=== PATIENT | female | born 1945 | race Caucasian/White ===

== ENCOUNTER 2018-01-25 07:32 | Emergency (ER) | payer OTHER, SELFPAY ==
[2018-01-25] VITALS (8 sets, daily range): BP systolic 145–178; BP diastolic 44–96; PULSE 64–87; RESP 15–18; TEMP 36.5–37.1; O2SAT 82–98
--- NOTE | 2018-01-25 07:38 | W.ED.GENAD ---
Discharge Plan Disposition Patient Disposition: HOME Condition: Stable Discharge Details Chief Complaint: Abd Prob Clinical Impression: Abdominal pain, Sacral mass Primary Care Provider: Delores,Local ED Provider: Marni Hua Home Meds and New Rx's Prescriptions: No Action No Known Home Meds RF: 0 Discharge Instructions Instructions: Abdominal Pain (ED) Additional Instructions: Please return immediately to the emergency department if you develop any new or worsening symptoms or if you become otherwise concerned. It is extremely important that you mail the provided CT scan images to your doctor in [place] as soon as possible. It is also extremely important that you call your doctor to schedule a follow-up appointment for this visit . Discharge Data Discharge Date/Time-TO BE ENTERED AT DEPARTURE: 01/25/18 13:33 Medical Decision Making Courtney Cruz is a 72 y/o woman with history of rectal cancer now in complete remission status post abdominal surgery presenting to the emergency department with abdominal pain and vomiting 2 days ago, now with no further vomiting but with continued mild right lower quadrant pain. On exam patient is very well and nontoxic appearing. Benign cardiopulmonary exam. Right lower quadrant and suprapubic tenderness without peritoneal signs on abdominal exam. Exam/history not consistent with acute aortic process, sepsis, ACS. Concern for obstruction versus ileus versus appendicitis versus UTI versus other. Plan for screening labs, IV fluid hydration, CT abdomen pelvis. Will monitor and reassess. Patient declines pain medication at this time. Labs nondiagnostic. CT shows sacral mass concerning for recurrence of neoplastic process. I relayed this information to the patient, who reported that she had a CT scan 1 month ago, and has been told that she has significant scarring in the area that does resemble a new mass. With this information, likely that finding on CT is not new, however, I stressed to the patient that record should be sent to her physician in [place] for comparison as soon as possible. I was informed by medical records that we are not able to mail imaging studies internationally. Patient was provided with a disc to send to her physician today for review and comparison. Patient reporting no symptoms at this time and feels ready for discharge. Lengthy discussion with patient regarding return to emergency department precautions and importance of outpatient follow-up. She is amenable to the plan. Medical Records Medical records reviewed: Yes I reviewed the patient's medical records. Imaging Data Radiologic Study: Attestation: I personally reviewed and interpreted this imaging study as follows: Radiologist's impression: ABDOMINAL AND PELVIC CT: CT examination of the abdomen and pelvis was performed with a bolus infusion of 100 cc of Omnipaque 350. Images obtained through the lung bases show small areas of bibasilar atelectasis or consolidation anteriorly. The liver and spleen appear normal. Pancreas appears intact. Gallbladder is distended, which is a nonspecific finding. No gross intra/extra-hepatic biliary duct dilatation is seen. Abdominal aorta is of normal diameter and no major vascular abnormality is seen. No significant abdominal wall hernia seen. Adrenals and kidneys appear normal; no evidence of hydronephrosis or nephrolithiasis. The patient reportedly has a history of resected and reanastomosed rectal carcinoma. There is marked presacral soft tissue mass-like radiodensity measuring up to about 2 cm in thickness and the rectal wall is markedly and irregularly thickened. No gross evidence of obstruction. Sigmoid and more proximal colon appear intact. Appendix is normal. No small bowel obstruction seen. No gross retroperitoneal adenopathy. No gross mesenteric adenopathy. No significant pelvic adenopathy seen. CHINESE TEACHER structures appear intact as visualized. CONCLUSION: In the absence of previous examinations for correlation, the findings are highly suspicious for a recurrent rectal carcinoma with a presacral mass and marked rectal wall thickening. Please correlate clinically and comparison with previous studies is recommended. Lab Data Lab results reviewed: Yes I reviewed the patient's lab results. HPI General Mode of arrival: ambulatory. Date/Time Provider Initiated Documentation: 01/25/18 07:38. Limitations to Documentation: no limitations. Information obtained by: patient, RN notes reviewed and old records reviewed. HPI Narrative: Courtney Cruz is a 72 y/o woman with a history of rectal cancer presenting to the emergency department abdominal pain. Patient reports that she was diagnosed with rectal cancer a few years ago. She had surgery and radiation treatment with colostomy, and her colostomy reversed 1 year ago. She is currently in remission and has not received any cancer treatment in the past year. She is otherwise healthy without medical problems, takes no medications. Patient reports that she is visiting from [place] for the month. 2 days ago patient developed significant abdominal pain and cramping. She had multiple episodes of vomiting after that, which were nonbilious and nonbloody. Patient reports that her pain did subside somewhat. She was concerned about an obstruction, having had abdominal surgery in the past, and has not eaten anything right since that time 2 nights ago. Did drink a small amount of water yesterday without vomiting. Patient reports that she had a bowel movement this morning which was normal. She is continuing to have mild right-sided lower quadrant pain. No history of obstruction in the past. No other recent illnesses. Related Data Home Medications Medication Instructions Recorded Confirmed Unknown [No Known Home Meds] 01/25/18 01/25/18 Allergies Allergy/AdvReac Type Severity Reaction Status Date / Time No Known Allergies Allergy Unverified 01/25/18 07:44 Review of Systems Review of Systems Constitutional: denies fevers Eyes: denies eye pain ENT: denies facial pain, dental pain, sore throat Cardiovascular: denies chest pain, edema Respiratory: denies SOB, cough GI: reports abdominal pain, vomiting, denies constipation, diarrhea : denies flank pain MSK: denies back pain, neck pain, arthralgias, myalgias Skin: denies rash Neuro: denies headaches, lightheadedness, weakness [facility] Social History Smoking/Tobacco Use Status: Former Tobacco Use Exam Narrative Exam Narrative: Constitutional: well and [id number], pleasant, conversing normally HENT: head atraumatic, normocephalic normal inspection, mucous membranes moist Eyes: conjunctiva normal, sclera normal, pupils 3mm b/l Neck: no stridor, normal ROM, trachea midline Chest: normal inspection Resp: normal work of breathing, LCTAB Cardio: normal rate, normal rhythm, no murmur appreciated GI: abdomen soft, non-distended, mild tenderness palpation right lower quadrant and right suprapubic area, no focal McBurney's point tenderness, negative Gil sign, no rebound/ Back: normal inspection, no rash Skin: warm, dry, normal color, no rash Neuro: alert, not altered, grossly non-focal, normal tone Ext: no edema Psych: normal mood, normal affect, normal behavior
--- NOTE | 2018-01-25 08:29 | DI.CT_ITS ---
SYMPTOMS/DIAGNOSIS: ABDOMINAL PAIN ABDOMINAL AND PELVIC CT: CT examination of the abdomen and pelvis was performed with a bolus infusion of 100 cc of Omnipaque 350. Images obtained through the lung bases show small areas of bibasilar atelectasis or consolidation anteriorly. The liver and spleen appear normal. Pancreas appears intact. Gallbladder is distended, which is a nonspecific finding. No gross intra/extra-hepatic biliary duct dilatation is seen. Abdominal aorta is of normal diameter and no major vascular abnormality is seen. No significant abdominal wall hernia seen. Adrenals and kidneys appear normal; no evidence of hydronephrosis or nephrolithiasis. The patient reportedly has a history of resected and reanastomosed rectal carcinoma. There is marked presacral soft tissue mass-like radiodensity measuring up to about 2 cm in thickness and the rectal wall is markedly and irregularly thickened. No gross evidence of obstruction. Sigmoid and more proximal colon appear intact. Appendix is normal. No small bowel obstruction seen. No gross retroperitoneal adenopathy. No gross mesenteric adenopathy. No significant pelvic adenopathy seen. EMERGENCY MEDICINE MEDICAL DIRECTOR structures appear intact as visualized. CONCLUSION: In the absence of previous examinations for correlation, the findings are highly suspicious for a recurrent rectal carcinoma with a presacral mass and marked rectal wall thickening. Please correlate clinically and comparison with previous studies is recommended.
--- NOTE | 2018-01-25 08:33 | ED.GENADUL_ITS ---
Discharge Plan Disposition Patient Disposition: HOME Condition: Stable Discharge Details Chief Complaint: Abd Prob Clinical Impression: Abdominal pain, Sacral mass Primary Care Provider: Delores,Local ED Provider: Marni Hua Home Meds and New Rx's Prescriptions: No Action No Known Home Meds RF: 0 Discharge Instructions Instructions: Abdominal Pain (ED) Additional Instructions: Please return immediately to the emergency department if you develop any new or worsening symptoms or if you become otherwise concerned. It is extremely important that you mail the provided CT scan images to your doctor in [place] as soon as possible. It is also extremely important that you call your doctor to schedule a follow-up appointment for this visit . Discharge Data Discharge Date/Time-TO BE ENTERED AT DEPARTURE: 01/25/18 13:33 Medical Decision Making Courtney Cruz is a 72 y/o woman with history of rectal cancer now in complete remission status post abdominal surgery presenting to the emergency department with abdominal pain and vomiting 2 days ago, now with no further vomiting but with continued mild right lower quadrant pain. On exam patient is very well and nontoxic appearing. Benign cardiopulmonary exam. Right lower quadrant and suprapubic tenderness without peritoneal signs on abdominal exam. Exam/history not consistent with acute aortic process, sepsis, ACS. Concern for obstruction versus ileus versus appendicitis versus UTI versus other. Plan for screening labs, IV fluid hydration, CT abdomen pelvis. Will monitor and reassess. Patient declines pain medication at this time. Labs nondiagnostic. CT shows sacral mass concerning for recurrence of neoplastic process. I relayed this information to the patient, who reported that she had a CT scan 1 month ago, and has been told that she has significant scarring in the area that does resemble a new mass. With this information, likely that finding on CT is not new, however, I stressed to the patient that record should be sent to her physician in [place] for comparison as soon as possible. I was informed by medical records that we are not able to mail imaging studies internationally. Patient was provided with a disc to send to her physician today for review and comparison. Patient reporting no symptoms at this time and feels ready for discharge. Lengthy discussion with patient regarding return to emergency department precautions and importance of outpatient follow-up. She is amenable to the plan. Medical Records Medical records reviewed: Yes I reviewed the patient's medical records. Imaging Data Radiologic Study: Attestation: I personally reviewed and interpreted this imaging study as follows: Radiologist's impression: ABDOMINAL AND PELVIC CT: CT examination of the abdomen and pelvis was performed with a bolus infusion of 100 cc of Omnipaque 350. Images obtained through the lung bases show small areas of bibasilar atelectasis or consolidation anteriorly. The liver and spleen appear normal. Pancreas appears intact. Gallbladder is distended, which is a nonspecific finding. No gross intra/extra-hepatic biliary duct dilatation is seen. Abdominal aorta is of normal diameter and no major vascular abnormality is seen. No significant abdominal wall hernia seen. Adrenals and kidneys appear normal; no evidence of hydronephrosis or nephrolithiasis. The patient reportedly has a history of resected and reanastomosed rectal carcinoma. There is marked presacral soft tissue mass-like radiodensity measuring up to about 2 cm in thickness and the rectal wall is markedly and irregularly thickened. No gross evidence of obstruction. Sigmoid and more proximal colon appear intact. Appendix is normal. No small bowel obstruction seen. No gross retroperitoneal adenopathy. No gross mesenteric adenopathy. No significant pelvic adenopathy seen. CHILD SUPPORT CASE OFFICER structures appear intact as visualized. CONCLUSION: In the absence of previous examinations for correlation, the findings are highly suspicious for a recurrent rectal carcinoma with a presacral mass and marked rectal wall thickening. Please correlate clinically and comparison with previous studies is recommended. Lab Data Lab results reviewed: Yes I reviewed the patient's lab results. HPI General Mode of arrival: ambulatory . Date/Time Provider Initiated Documentation: 01/25/18 07:38 . Limitations to Documentation: no limitations . Information obtained by: patient, RN notes reviewed and old records reviewed . HPI Narrative: Courtney Cruz is a 72 y/o woman with a history of rectal cancer presenting to the emergency department abdominal pain. Patient reports that she was diagnosed with rectal cancer a few years ago. She had surgery and radiation treatment with colostomy, and her colostomy reversed 1 year ago. She is currently in remission and has not received any cancer treatment in the past year. She is otherwise healthy without medical problems, takes no medications. Patient reports that she is visiting from [place] for the month. 2 days ago patient developed significant abdominal pain and cramping. She had multiple episodes of vomiting after that, which were nonbilious and nonbloody. Patient reports that her pain did subside somewhat. She was concerned about an obstruction, having had abdominal surgery in the past, and has not eaten anything right since that time 2 nights ago. Did drink a small amount of water yesterday without vomiting. Patient reports that she had a bowel movement this morning which was normal. She is continuing to have mild right-sided lower quadrant pain. No history of obstruction in the past. No other recent illnesses. Related Data Home Medications Medication Instructions Recorded Confirmed Unknown [No Known Home Meds] 01/25/18 01/25/18 Allergies Allergy/AdvReac Type Severity Reaction Status Date / Time No Known Allergies Allergy Unverified 01/25/18 07:44 Review of Systems Review of Systems Constitutional: denies fevers Eyes: denies eye pain ENT: denies facial pain, dental pain, sore throat Cardiovascular: denies chest pain, edema Respiratory: denies SOB, cough GI: reports abdominal pain, vomiting, denies constipation, diarrhea : denies flank pain MSK: denies back pain, neck pain, arthralgias, myalgias Skin: denies rash Neuro: denies headaches, lightheadedness, weakness [facility] Social History Smoking/Tobacco Use Status: Former Tobacco Use Exam Narrative Exam Narrative: Constitutional: well and [id number], pleasant, conversing normally HENT: head atraumatic, normocephalic normal inspection, mucous membranes moist Eyes: conjunctiva normal, sclera normal, pupils 3mm b/l Neck: no stridor, normal ROM, trachea midline Chest: normal inspection Resp: normal work of breathing, LCTAB Cardio: normal rate, normal rhythm, no murmur appreciated GI: abdomen soft, non-distended, mild tenderness palpation right lower quadrant and right suprapubic area, no focal McBurney's point tenderness, negative Gil sign, no rebound/ Back: normal inspection, no rash Skin: warm, dry, normal color, no rash Neuro: alert, not altered, grossly non-focal, normal tone Ext: no edema Psych: normal mood, normal affect, normal behavior
[2018-01-25 08:48] LABS: Bilirubin Negative (Negative); Blood Small (Negative); Clarity Clear; Glucose Negative (Negative); Ketones Negative (Negative); Leukocyte Esterase Trace (Negative); Nitrite Negative (Negative); Specific Gravity <= 1.005 (1.005-1.025); Urobilinogen 0.2 EU/dL (Up TO 0.2)
[2018-01-25] MEDS: Normal Saline 1,000 ML 1000 ML IV (08:50)
[2018-01-25 09:02] LABS: Abs Immature Grans 0.01 k/cumm (0.0-0.09); Absolute Basophil Count 0.02 k/cumm (0.0-0.2); Absolute Eosinophil Count 0.06 k/cumm (0.0-0.7); Absolute Monocyte Count 0.74 k/cumm (0.11-0.7); Absolute Neutrophil Count 5.02 k/cumm (1.2-6.7); Basophils % 0.3; Eosinophils % 0.9; HGB 11.7 g/dL (12.0-15.5); Immature Grans % 0.1; Lymphocytes % 15.8; Mean Corp. HGB Concentration 30.8 g/dL (32.0-36.0); Mean Corpuscular Hemoglobin 28.1 pg (27.0-33.0); Mean Corpuscular Volume 91.3 fL (80-95); Mean Platelet Volume 9.1 fL (8.0-11.0); Monocytes % 10.6; Neutrophils % 72.3; Platelet Count 278 x1000/uL (130-400); RBC 4.16 m/cumm (4.00-5.20); RBC Distribution Width 15.9 % (11.7-14.6); White Blood Cell Count 6.95 k/cumm (4.4-10.8)
[2018-01-25 09:05] LABS: Bacteria Rare HPF (Negative); Casts Negative LPF (Negative); Crystals Negative HPF (Negative); Epithelial Cells Few HPF (Negative); Mucus Negative (Negative); Other Cells Few Renal (Negative); RBC 0-2 (0-2)
[2018-01-25 09:06] LABS: C & S Indicated? Yes
[2018-01-25 09:13] LABS: ALT 23 U/L (12-78); AST 22 U/L (15-37); Alkaline Phosphatase 81 U/L (46-116); Anion Gap 8.8 mmol/L (3-11); BUN 12 mg/dL (7-18); Bilirubin, Total 0.3 mg/dL (0.2-1.0); CO2 27.2 mmol/L (21.0-32.0); CREATININE 0.83 mg/dL (0.55-1.02); Calcium 8.9 mg/dL (8.5-10.1); Chloride 103 mmol/L (98-107); Glucose 100 mg/dL (70-100); Lipase 85 U/L (73-393); Potassium 4.3 mmol/L (3.5-5.1); Sodium 139 mmol/L (136-145); Total Protein 7.3 g/dL (6.4-8.2)
[2018-01-25] MEDS: Omnipaque 350 MG/ML 100 ML BTL IV (12:12)
== END 2018-01-25 13:33 | disposition home or self-care (01) ==
PROVIDERS: Emergency Provider Student in an Organized Health Care Education/Training Program
DX: R10.31 Right lower quadrant pain (principal); R11.2 Nausea with vomiting, unspecified; R93.3 Abnormal findings on diagnostic imaging of other parts of digestive tract; Z85.048 Personal history of other malignant neoplasm of rectum, rectosigmoid junction, and anus
CPT/HCPCS: 36415; 80053; 83690; 87077; 96360; 99285; 74177; 81003; 81015; 85025; 87086; 87186; J3490